=== PATIENT | female | born 1990 | race Caucasian/White ===

== ENCOUNTER 2020-05-26 23:51 | Emergency (ER) | payer MEDICAID ==
[~2020-05-26] VITALS: Ht 162.6 cm; Wt 70.0 kg
--- NOTE | 2020-05-27 00:18 | NUR ---
PT CAME IN BECAUSE OF ABCESS ON LEFT THIGH FROM METH/HEROIN SKIN POPPING. SITE RED, WARM AND TENDER TO TOUCH. PATIENT STATES 6/10 PAIN. PATIENT RESTING COMFORTABLY AND PLAYING ON PHONE. SAFETY MEASURES IN PLACE, AND IS ON MONITORS
[2020-05-27] MEDS ORDERED: LIDOCAINE-MPF 1%, 5ML ONE (00:24)
[2020-05-27] MEDS ORDERED: LIDOCAINE-MPF 1%, 5ML INFIL ONE (00:30)
[2020-05-27] MEDS ORDERED: SULFAMETH./TRIMETHOPRIM DS 800MG/160MG TABLET ONE (00:50)
[2020-05-27] MEDS ORDERED: CEPHALEXIN 500 MG CAPSULE ONE (00:50)
[2020-05-27 00:52] VITALS: BP 116/66
[2020-05-27] MEDS ORDERED: CEPHALEXIN 500 MG CAPSULE PO ONE (01:00)
[2020-05-27] MEDS ORDERED: SULFAMETH./TRIMETHOPRIM DS 800MG/160MG TABLET PO ONE (01:00)
[2020-05-27] MEDS ORDERED: DIPH,PERTUSS(ACELL),TET VAC/PF 0.5 ML IM-VACC ONE ×2 (01:02→01:30)
== END 2020-05-27 01:10 | disposition home or self-care (01) ==
LOC: ED 05-27 00:50
DX: L02.416 Cutaneous abscess of left lower limb (principal); L03.116 Cellulitis of left lower limb; F11.10 Opioid abuse, uncomplicated; M79.652 Pain in left thigh; F17.210 Nicotine dependence, cigarettes, uncomplicated; Z72.9 Problem related to lifestyle, unspecified
CPT/HCPCS: 90471; 90715; 99284; 99406

== ENCOUNTER 2020-10-18 14:21 | Emergency (ER) | payer MEDICAID ==
[~2020-10-18] VITALS: Ht 162.6 cm; Wt 65.0 kg
[2020-10-18 14:26] VITALS: BP 115/66
--- NOTE | 2020-10-18 14:30 | NUR ---
pt prefers to be called Domenic.
[2020-10-18] MEDS ORDERED: PROPARACAINE OPHTH 0.5%, 15ML ONE (15:00)
[2020-10-18] MEDS ORDERED: SULFAMETH./TRIMETHOPRIM DS 800MG/160MG TABLET ONE (15:21)
[2020-10-18] MEDS ORDERED: SULFAMETH./TRIMETHOPRIM DS 800MG/160MG TABLET PO ONE (16:00)
== END 2020-10-18 15:31 | disposition home or self-care (01) ==
LOC: ED 15:25
DX: L03.213 Periorbital cellulitis (principal); F17.200 Nicotine dependence, unspecified, uncomplicated; Z88.5 Allergy status to narcotic agent; Z88.8 Allergy status to other drugs, medicaments and biological substances; Z90.13 Acquired absence of bilateral breasts and nipples
CPT/HCPCS: 99283